=== PATIENT | male | born 1975 | race Caucasian/White ===

== ENCOUNTER 2017-06-15 14:10 | Emergency (ER) | payer MEDICAID ==
[2017-06-15] MEDS ORDERED: KETOROLAC 60 MG INJ (16:16)
[2017-06-15] MEDS: KETOROLAC 60 MG INJ IM (16:18)
== END 2017-06-15 17:55 | disposition home or self-care (01) ==
LOC: FTE 14:10
DX: M25.562 Pain in left knee (principal)
CPT/HCPCS: 29505; 72100; 73562; 96372; 99284-25

== ENCOUNTER 2017-09-14 11:47 | Emergency (ER) | payer OTHER, MEDICAID ==
[2017-09-14] MEDS: KETOROLAC 60 MG INJ IM (13:12)
[2017-09-14] MEDS: HYDROCODONE/APAP (5/325) TAB PO (13:12)
== END 2017-09-14 15:04 | disposition home or self-care (01) ==
LOC: FTE 11:47
DX: S33.9XXA Sprain of unspecified parts of lumbar spine and pelvis, initial encounter (principal); X58.XXXA Exposure to other specified factors, initial encounter; Y92.9 Unspecified place or not applicable
CPT/HCPCS: 72100; 96372; 99284-25